=== PATIENT | female | born 1980 | race Asian ===

== ENCOUNTER 2016-09-16 22:36 | Emergency (ER) | payer SELFPAY ==
[~2016-09-16] VITALS: Ht 167.6 cm; Wt 52.2 kg
[2016-09-16] MEDS ORDERED: NKM (22:42)
[2016-09-16] MEDS ORDERED: Norco 5mg/325mg tab ORAL ONE (22:45)
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
[2016-09-16 22:56] VITALS: BP 109/64
[2016-09-16] MEDS ORDERED: HYDROCODON-ACE1 EA15 ORAL (23:57)
[2016-09-17 00:14] VITALS: BP 110/68
--- NOTE | 2016-09-17 11:30 | Diagnostic Imaging Report ---
Indication: Pain Findings: 3 views of the right wrist were obtained. There is an acute fracture in the area of the metaphysis involving the distal radius with comminution and moderate impaction demonstrated. Impression: Acute distal radius fracture
== END 2016-09-17 00:14 | disposition home or self-care (01) ==
LOC: EDBD 22:36 → EMR 22:54
DX: S52.591A Other fractures of lower end of right radius, initial encounter for closed fracture (principal); V43.52XA Car driver injured in collision with other type car in traffic accident, initial encounter; Y92.414 Local residential or business street as the place of occurrence of the external cause
CPT/HCPCS: 29125